=== PATIENT | female | born 1985 | race Caucasian/White ===

== ENCOUNTER 2021-07-03 09:13 | Observation (INO) | payer OTHER, SELFPAY ==
--- NOTE | ~2021-07-03 | US_ITS ---
EXAMINATION: US OB limited w BPP DATE: 07/03/2021 10:40 INDICATION: well-being. Third trimester. TECHNIQUE: Real-time pelvic ultrasound was performed. COMPARISON: None. FINDINGS: There is a single living fetus in vertex presentation. The placenta is anterior. heart rate is 142 beats per minute (bpm). The amniotic fluid index is 18.0 cm, which is normal. Biophysical profile performed by the technologist: breathing (30 sec sustained breathing in 30 minutes): 2 out of 2 movement (3 gross body movements in 30 minutes): 2 out of 2 tone (one episode of hpuywcj-nuqrcavvg-szgkzog limb movement): 2 out of 2 Amniotic fluid pocket (2 cm): 2 out of 2 Total score: 8 out of 8 IMPRESSION: 1. Single living fetus in vertex presentation. 2. Biophysical profile 8 out of 8. Reviewed, dictated and finalized at location A. MANAGER
[2021-07-03 09:30] VITALS: BMI 28.2
[2021-07-03 09:37] VITALS: BP 133/84; PULSE 84
[2021-07-03 10:44] LABS: Add Urine Microscopic? YES; Appearance Urine Cloudy (Clear); Bacteria Urine Trace /hpf; Bilirubin Urine Negative (Negative); Blood Urine 2+ (Negative); Color Urine Yellow (Yellow); Glucose Urine UA Negative (Negative); Ketones Urine Negative (Negative); Leukocyte Esterase Ur Trace LEU/UL (Negative); Nitrate Urine Negative (Negative); Protein Urine Negative (Negative); RBC Urine 0-2 /hpf (0-2); Specific Grav Ur 1.015 (1.001-1.035); Squamous Epithelial Cell Urine Few /hpf (Few); Urobilinogen Urine Negative mg/dL (<2.0)
--- NOTE | 2021-07-03 12:04 | OBADM ---
This patient, Virginia Tiwari, admitted to the OB room OB Post 117 for observation. Patient/family oriented to hospital policies and general routines including ID bracelet, bed and alarms, visiting hours, pain management, procedures, bathroom and other care routines, personal items, smoking policy, room service/diet, and visiting hours. Patient/Family are encouraged to report perceived risks to care and to ask questions if they do not understand what they are told or what they should do.
--- NOTE | 2021-07-31 08:36 | PM.OBTRLD ---
OB - Triage/Final Diagnosis Visit Information Comments/Additional reasons for admission: I have assessed the risk for this patient, [place] Tiwari, and determined that she would benefit from observation care. Evaluation Laboratory results: Laboratory Tests 07/03/21 07/03/21 07/03/21 10:22 11:55 11:58 Urine Color Yellow Urine Appearance Cloudy H Urine pH 7.0 Ur Specific [place] 1.015 Urine Protein Negative Urine Glucose (UA) Negative Urine Ketones Negative Ur Blood (Man) 2+ H Urine Nitrate Negative Urine Bilirubin Negative Urine Urobilinogen Negative Leukocyte Esterase Rfl Trace H Urine RBC 0-2 Urine WBC 7-9 H Ur Squamous Epith Cells Few Urine Bacteria Trace C.trachomatis RNA (TMA) Not detected N.gonorrhoeae RNA (TMA) Not detected Trichomonas Direct ID Negative Final Diagnosis (1) Vaginal bleeding during : Code(s): O46.90 - Antepartum hemorrhage, unspecified, unspecified trimester Status: Acute
== END 2021-07-03 12:05 | disposition home or self-care (01) ==
PROVIDERS: Advanced Practice Midwife; Admitting Provider Obstetrics & Gynecology; Visit Provider Obstetrics & Gynecology
DX: O46.93 Antepartum hemorrhage, unspecified, third trimester (principal); Z3A.33 33 weeks gestation of pregnancy
CPT/HCPCS: 76815; 76819; 81001; 87086; 87491; 87591; 87808; G0378; G0379

== ENCOUNTER 2021-07-10 11:19 | Outpatient (CLI) | payer OTHER, SELFPAY ==
[2021-07-10] VITALS (12 sets, daily range): BP systolic 122–142; BP diastolic 48–87; PULSE 71–89; BMI 27.8
[2021-07-10 12:03] LABS: Basophils Percent Auto 0.2 % (0.2-1.2); Eosinophils Percent Auto 0.3 % (0-4.4); Hematocrit 31.3 % (37.0-47.0); Hemoglobin 9.4 g/dL (12.0-15.0); Immature Granulocyte Absolute 0.12 K/mm3 (0.00-0.031); Lymphocytes Absolute Auto 1.54 K/mm3 (0.9-3.2); Lymphocytes Percent Auto 13.3 % (18.3-44.2); Mean Corpuscular Hemoglobin 24.7 pg (26-34); Mean Corpuscular Volume 82.2 fl (80-100); Mean Platelet Volume 11.7 fl (7.4-10.4); Monocytes Percent Auto 8.5 % (2.6-8.5); Neutrophils Absolute Auto 8.9 K/mm3 (1.3-6.7); Neutrophils Percent Auto 76.7 % (45.5-73.1); Platelet Count Result 208 k/mm3 (150-375); Red Blood Count 3.81 M/mm3 (4.2-5.4); White Blood Count 11.5 K/mm3 (4.5-10.0)
[2021-07-10 12:13] LABS: Alanine Aminotransferase 12 U/L (4-35); Albumin Level 3.6 g/dL (3.5-5.1); Alkaline Phosphatase 261 U/L (38-126); Anion Gap 4 mmol/L (8-16); Aspartate Amino Transferase 26 U/L (14-36); Bilirubin,Total < 0.1 mg/dL (0.2-1.3); Blood Urea Nitrogen 10 mg/dL (7-17); Calcium 8.4 mg/dL (8.4-10.2); Carbon Dioxide 27 mmol/L (22-30); Chloride 103 mmol/L (98-107); Estimated Glomerular Filt Rate > 60; Glucose 83 mg/dL (65-110); Potassium 3.8 mmol/L (3.4-5.0); Sodium 134 mmol/L (137-145); Uric Acid 6.2 mg/dL (2.5-7.5)
[2021-07-10 13:26] LABS: Creatinine Urine 105.4 mg/dL; Total Protein Urine Random 12 mg/dL; Ur Ttl Prot Creatinine Ratio 0.11 mg/mg (0-0.20)
[2021-07-10 13:43] LABS: Add Urine Microscopic? YES; Appearance Urine Clear (Clear); Bilirubin Urine Negative (Negative); Blood Urine Negative (Negative); Color Urine Yellow (Yellow); Glucose Urine UA Negative (Negative); Ketones Urine Negative (Negative); Leukocyte Esterase Ur Trace LEU/UL (Negative); Nitrate Urine Negative (Negative); Protein Urine Negative (Negative); RBC Urine 0-2 /hpf (0-2); Specific Grav Ur 1.013 (1.001-1.035); Squamous Epithelial Cell Urine Rare /hpf (Few); Urobilinogen Urine Negative mg/dL (<2.0)
--- NOTE | 2021-07-10 13:50 | PC.NURSE ---
4 contractions in the last hour. Pt still denies feeling them.
--- NOTE | 2021-07-10 14:08 | PC.NURSE ---
Koko Mars CNM returned call and informed of BP's, reactive NST, and lab results. Discussed contractions noted on NST which pt doesn't feel, PO hydration had decreased contractions to 4 in an hour, but just noted an increase in frequency again and when I asked the pt if she was feeling these contractions she stated no, but she did need to use the restroom. Pt c/o heartburn. OK to discharge to home.
--- NOTE | 2021-07-10 14:14 | PC.NURSE ---
2 contractions in the last 24 mins. Pt up to void.
== END 2021-07-10 14:16 | disposition home or self-care (01) ==
LOC: ANHOBOP 11:25 → ANHOBPP 11:28
PROVIDERS: Visit Provider Obstetrics & Gynecology
DX: O13.9 Gestational [pregnancy-induced] hypertension without significant proteinuria, unspecified trimester (principal); Z3A.00 Weeks of gestation of pregnancy not specified
CPT/HCPCS: 36415; 59025; 80053; 81001; 82570; 84156; 84550; 85025; 99199

== ENCOUNTER 2021-07-21 11:09 | Outpatient (CLI) | payer OTHER, SELFPAY ==
[2021-07-21 11:30] VITALS: BP 139/79; PULSE 75
[2021-07-21 11:35] VITALS: BP 139/84; PULSE 69
[2021-07-21 11:45] VITALS: BP 136/83; PULSE 74
[2021-07-21 11:54] LABS: Basophils Percent Auto 0.2 % (0.2-1.2); Eosinophils Percent Auto 0.4 % (0-4.4); Hematocrit 27.2 % (37.0-47.0); Hemoglobin 8.1 g/dL (12.0-15.0); Immature Granulocyte Absolute 0.08 K/mm3 (0.00-0.031); Immature Granulocyte Percent A 0.9 % (0-0.5); Lymphocytes Absolute Auto 1.54 K/mm3 (0.9-3.2); Lymphocytes Percent Auto 18.2 % (18.3-44.2); Mean Corpuscular HGB Conc 29.8 g/dl (32-36); Mean Corpuscular Hemoglobin 24.3 pg (26-34); Mean Corpuscular Volume 81.7 fl (80-100); Mean Platelet Volume 12.6 fl (7.4-10.4); Monocytes Absolute Auto 0.6 K/mm3 (0.1-0.6); Monocytes Percent Auto 7.6 % (2.6-8.5); Neutrophils Absolute Auto 6.2 K/mm3 (1.3-6.7); Neutrophils Percent Auto 72.7 % (45.5-73.1); Nucleated Red Blood Cells Perc 0.2 % (0.0-0.2); Platelet Count Result 142 k/mm3 (150-375); Red Blood Count 3.33 M/mm3 (4.2-5.4); Red Cell Distribution Width 16.3 % (11.5-14.5); White Blood Count 8.5 K/mm3 (4.5-10.0)
[2021-07-21 12:01] LABS: Appearance Urine Clear (Clear); Bilirubin Urine Negative (Negative); Blood Urine Negative (Negative); Color Urine Yellow (Yellow); Glucose Urine UA Negative (Negative); Ketones Urine Negative (Negative); Leukocyte Esterase Ur 2+ LEU/UL (NEGATIVE); Nitrate Urine Negative (Negative); Protein Urine Trace mg/dL (Negative); Specific Grav Ur 1.015 (1.001-1.035); Urobilinogen Urine 0.2 mg/dL (<2.0); pH Urine 7.5 (5.0-9.0)
[2021-07-21 12:07] LABS: RBC Urine 0-2 /hpf (0-2); Squamous Epithelial Cell Urine Few /hpf (Few)
[2021-07-21 12:10] LABS: Add Urine Microscopic? YES
[2021-07-21 12:15] VITALS: BP 137/76; PULSE 78
[2021-07-21 12:15] LABS: Alanine Aminotransferase 11 U/L (4-35); Albumin Level 2.8 g/dL (3.5-5.1); Alkaline Phosphatase 238 U/L (38-126); Anion Gap 5 mmol/L (8-16); Aspartate Amino Transferase 27 U/L (14-36); Bilirubin,Total 0.1 mg/dL (0.2-1.3); Blood Urea Nitrogen 10 mg/dL (7-17); Calcium 7.5 mg/dL (8.4-10.2); Carbon Dioxide 24 mmol/L (22-30); Chloride 105 mmol/L (98-107); Estimated Glomerular Filt Rate > 60; Glucose 91 mg/dL (65-110); Potassium 3.9 mmol/L (3.4-5.0); Sodium 134 mmol/L (137-145); Uric Acid 6.4 mg/dL (2.5-7.5)
[2021-07-21 12:18] LABS: Creatinine Urine 73.6 mg/dL; Total Protein Urine Random 23 mg/dL; Ur Ttl Prot Creatinine Ratio 0.31 mg/mg (0-0.20)
[2021-07-21 12:25] VITALS: BP 136/83; PULSE 69
== END 2021-07-21 12:30 | disposition home or self-care (01) ==
LOC: ANHOBOP 11:13 → ANHOBPP 11:13
PROVIDERS: Visit Provider Obstetrics & Gynecology
DX: O13.3 Gestational [pregnancy-induced] hypertension without significant proteinuria, third trimester (principal); Z3A.36 36 weeks gestation of pregnancy
CPT/HCPCS: 36415; 59025; 80053; 81001; 82570; 84156; 84550; 85025; 87086; 99199

== ENCOUNTER 2021-07-24 14:32 | Outpatient (RCR) | payer OTHER, SELFPAY ==
--- NOTE | ~2021-07-24 | US_ITS ---
EXAMINATION: US OB BPP wo non-stress DATE: 07/24/2021 17:09 INDICATION: Variable decelerations. Third trimester. TECHNIQUE: Real-time pelvic ultrasound was performed. COMPARISON: Ultrasound 07/03/2021 FINDINGS: There is a single living fetus in vertex presentation. There is mild left pelviectasis measuring 9 mm . The bladder is subjectively distended. The placenta is anterior. heart rate is 142 beats per minute (bpm). The amniotic fluid index is 22.3 cm, which is normal. Biophysical profile performed by the technologist: breathing (30 sec sustained breathing in 30 minutes): 2 out of 2 movement (3 gross body movements in 30 minutes): 2 out of 2 tone (one episode of zayovmi-kbtfwtqca-xiqxwch limb movement): 2 out of 2 Amniotic fluid pocket (2 cm): 2 out of 2 Total score: 8 out of 8 IMPRESSION: 1. Single living fetus in vertex presentation. 2. Biophysical profile 8 out of 8. 3. Mild pelviectasis of left kidney. Reviewed, dictated and finalized at location A.
[2021-07-24 17:20] VITALS: BP 153/91; PULSE 67
== END 2021-07-24 15:00 | disposition home or self-care (01) ==
LOC: ANHOBOP 14:32
PROVIDERS: PCP Emergency Medicine; Visit Provider Advanced Practice Midwife
DX: O36.8330 Maternal care for abnormalities of the fetal heart rate or rhythm, third trimester, not applicable or unspecified (principal); O16.3 Unspecified maternal hypertension, third trimester; Z3A.36 36 weeks gestation of pregnancy
CPT/HCPCS: 59025; 76819

== ENCOUNTER 2021-07-25 06:15 | Inpatient (IN) | payer OTHER, SELFPAY ==
--- NOTE | 2021-07-24 12:29 | PC.NURSE ---
Received call from Areli Shaffer from [facility]. They are aware that pt is scheduled for IOL tomorrow AM. Care Coordination should be notified when pt delivers and they will notify [facility] hotline after delivery.willian Shaffer states she has notified the contractor general engineering staff and her supervisor tumbling and rolling. Spoke with Cary Gates and they are aware pt is delivering on weekend and weekend contractor general engineering staff is also aware.
[2021-07-25] VITALS (71 sets, daily range): BP systolic 103–166; BP diastolic 49–96; PULSE 31–122; RESP 16–18; TEMP 36.3–37.4; O2SAT 84–100; BMI 29.8
--- OUTSIDE RECORDS SUMMARY | 2021-07-25 06:06 | XMS_ITS ---
:1985 Author Care Team Providers Name Role Phone DAMARIS FERNANDEZ Primary Care Provider [phone] Allergies Code Code System Name Reaction Severity Status Onset NKDA ? Medications Name Status Start Date Stop Date ? ? Addyi 100 mg tablet Completed ? 06/28/2020 azithromycin 500 mg tablet Completed ? 02/02 TAKE 2 TABLETS BY MOUTH 1 TIME buspirone 10 mg tablet Active ? Not avail able TAKE 1 TABLET BY MOUTH TWICE DAILY. AVOID DRIVING OR OPERATE [employer] buspirone 15 mg tablet Completed ? TAKE 1 TABLET BY MOUTH TWICE DAILY duloxetine 30 mg capsule,delayed release Completed ? 06/28/2020 TK 1 C PO QD duloxetine 60 mg capsule,delayed release Active ? Not available TAKE 1 CAPSULE BY MOUTH TWICE DAILY esomeprazole magnesium 20 mg capsule,delayed release Active ? Not available TAKE 1 CAPSULE BY MOUTH ONCE DAILY fluconazole 200 mg tablet Completed ? 2020 TAKE 1 TABLET BY MOUTH EVERY OTHER DAY FOR 3 DOSES ID NOW COVID-19 Test Kit Completed ? 021 TEST DIRECTED meloxicam 15 mg tablet Completed ? TK 1 T PO QD PRN methylphenidate 10 mg tablet Completed ? 02/2021 TAKE 1 AND 1/2 TABLETS BY MOUTH TWICE DAILY metronidazole 0.75 % vaginal gel Completed ? 08/09/2020 INSERT ONE APPLICATORFUL VAGINALLY AT BEDTIME FOR 5 DAYS metronidazole 500 mg tablet Completed ? 09/2020 TK 1 T PO BID FOR 7 DAYS. DO NOT DRK ALCOHOL
--- OUTSIDE RECORDS SUMMARY | 2021-07-25 06:06 | XMS_ITS | Encounter Summary ---
:1985 Author Care Team Providers Name Role Phone Pérez Conley Primary Care Provider [phone] Reason for Visit None recorded. Assessment and Plan 1. Spotting per vagina in pregna ncy ? non-stress test Discussion Note: None recorded.Patient educational handouts: No information available. Plan of Care Reminders Provider Appointments Ob Routine 07/31/2021 Kusum Mars, 3:00PM CNM ? Ob Routine 08/06/2021 Biju Liu 11:00AM MD Marcelo ? Ob Routine 08/14/2021 Cristiana Mars, 10:00AM CNM ? Ob Routine 08/21/2021 Cristiana Mars, 10:45AM CNM ? Return to on or around [facility] 09/03/2021 TIAGO Michel [facility] Lab None ? ? recorded. Referral None ? ? recorded. Procedures None ? ? recorded. Surgeries None ? ? recorded. Imaging Non-stress 07/07/2021 Tam day Test Medications Name Start Date ? ? buspirone 10 mg tablet ? TAKE 1 TABLET BY MOUTH TWICE DAILY. AVOID DRIVING OR OPERATE MACHINES duloxetine 60 mg capsule,delayed release ? TAKE 1 CAPSULE BY MOUTH TWICE DAILY esomeprazole magnesium 20 mg capsule,mary
--- OUTSIDE RECORDS SUMMARY | 2021-07-25 06:06 | XMS_ITS | Encounter Summary ---
:1985 Author Care Team Providers Name Role Phone Pérez Conley Primary Care Provider [phone] Reason for Visit OB visit OB [id number] EDC 08/15/2021 Assessment and Plan Assessment Note Patient is _33__weeks . Dis cussed plan. 1. Routine care Discussion Note: None recorded.Patient educational handouts: No information available. Plan of Care Reminders Provider Appointments Ob Routine 07/31/2021 Kusum Mars, 3:00PM CNM ? Ob Routine 08/06/2021 Biju Liu 11:00AM MD Marcelo ? Ob Routine 08/14/2021 Cristiana Mars, 10:00AM CNM ? Ob Routine 08/21/2021 Cristiana Mars, 10:45AM CNM ? Return to on or around [facility] Office 09/03/2021 TIAGO Michel - Lab None ? ? recorded. Referral None ? ? recorded. Procedures None ? ? recorded. Surgeries None ? ? recorded. Imaging None ? ? recorded. Medications Name Start Date ? ? buspirone 10 mg tablet ? TAKE 1 TABLET BY MOUTH TWICE DAILY. AVOID DRIVING OR OPERATE MACHINES duloxetine 60 mg capsule,delayed release ?
--- OUTSIDE RECORDS SUMMARY | 2021-07-25 06:06 | XMS_ITS | Encounter Summary ---
:1985 Author Care Team Providers Name Role Phone Pérez Conley Primary Care Provider [phone] Reason for Visit None recorded. Assessment and Plan None recorded.Discussion Note: None recorded.Patient educational handouts: No information available. Plan of Care Reminders Provider Appointments Ob Routine 07/31/2021 Kusum Mars, 3:00PM CNM ? Ob Routine 08/06/2021 Biju Liu 11:00AM MD Marcelo ? Ob Routine 08/14/2021 Cristiana Mars, 10:00AM CNM ? Ob Routine 08/21/2021 Cristiana Mars, 10:45AM CNM ? Return to on or around [facility] Office 09/03/2021 TIAGO Michel [facility] Lab None ? ? recorded. Referral [...] DAILY esomeprazole magnesium 20 mg capsule,delayed release ? TAKE 1 CAPSULE BY MOUTH ONCE DAILY ? Medications Administered
--- OUTSIDE RECORDS SUMMARY | 2021-07-25 06:06 | XMS_ITS | Encounter Summary ---
:1985 Author Care Team Providers Name Role Phone Pérez Conley Primary Care Provider [phone] Reason for Visit OB visit Assessment and Plan Assessment Note Patient is _25__weeks . Dis cussed plan. 1. Routine care ? drug screen, urine Discussion Note: None recorded.Patient educational handouts: No information available. Plan of Care Reminders Provider Appointments Ob Routine 07/31/2021 Kusum Mars, 3:00PM CNM ? Ob Routine 08/06/2021 Biju Liu 11:00AM MD Marcelo ? Ob Routine 08/14/2021 Cristiana Mars, 10:00AM CNM ? Ob Routine 08/21/2021 Cristiana Mars, 10:45AM CNM ? Return to on or around [facility] Office 09/03/2021 TIAGO Michel [facility] Lab Drug 05/08/2021 [place] Screen, Urine Referral None ? ? recorded. Procedures None ? ? recorded. Surgeries None ? ? recorded. Imaging None ? ? recorded. Medications Name Start Date ? ? buspirone 10 mg tablet ? TAKE 1 TABLET BY MOUTH TWICE DAILY. AVOID DRIVING OR OPERATE MACHINES duloxetine 60 mg capsule,d
--- OUTSIDE RECORDS SUMMARY | 2021-07-25 06:06 | XMS_ITS | Encounter Summary ---
:1985 Author Care Team Providers Name Role Phone Pérez Conley Primary Care Provider [phone] Reason for Visit None recorded. Assessment and [...] around [facility] 09/03/2021 TIAGO Michel [facility] Lab None ? ? recorded. Referral None ? ? recorded. Procedures None ? ? recorded. Surgeries None ? ? recorded. Imaging Non-stress 07/17/2021 Tam day Test Medications Name Start Date ? ? buspirone 10 mg tablet ? TAKE 1 TABLET BY MOUTH TWICE DAILY. AVOID DRIVING OR OPERATE MACHINES duloxetine 60 mg capsule,delayed release ? TAKE 1 CAPSULE BY MOUTH TWICE DAILY esomeprazole magnesium 20 mg capsule,mary
--- OUTSIDE RECORDS SUMMARY | 2021-07-25 06:06 | XMS_ITS | Encounter Summary ---
:1985 Author Care Team Providers Name Role Phone Pérez oCnley Primary Care Provider [phone] Reason for Visit None recorded. Assessment and [...] around [facility] 09/03/2021 TIAGO Michel - Lab None ? ? recorded. Referral None ? ? recorded. Procedures None ? ? recorded. Surgeries None ? ? recorded. Imaging Non-stress 07/24/2021 Tam day Test Medications Name Start Date ? ? buspirone 10 mg tablet ? TAKE 1 TABLET BY MOUTH TWICE DAILY. AVOID DRIVING OR OPERATE MACHINES duloxetine 60 mg capsule,delayed release ? TAKE 1 CAPSULE BY MOUTH TWICE DAILY esomeprazole magnesium 20 mg capsule,del
--- OUTSIDE RECORDS SUMMARY | 2021-07-25 06:06 | XMS_ITS | Encounter Summary ---
:1985 Author Care Team Providers Name Role Phone Pérez Conley Primary Care Provider [phone] Reason for Visit None recorded. Assessment and Plan 1. Medical examination for suspe cted condition ? US, obstetric, follow-up Discussion Note: None recorded.Patient educational handouts: No information available. Plan of Care Reminders Provider Appointments Ob Routine 07/31/2021 Kusum Mars, 3:00PM CNM ? Ob Routine 08/06/2021 Biju Liu 11:00AM MD Marcelo ? Ob Routine 08/14/2021 Cristiana Mars, 10:00AM CNM ? Ob Routine 08/21/2021 Cristiana Mars, 10:45AM CNM ? Return to on or around [facility] Office 09/03/2021 TIAGO Michel - Lab None ? ? recorded. Referral None ? ? recorded. Procedures None ? ? recorded. Surgeries None ? ? recorded. Imaging US, 07/06/2021 [place] Obstetric, Follow-up Medications Name Start Date ? ? buspirone 10 mg tablet ? TAKE 1 TABLET BY MOUTH TWICE DAILY. AVOID DRIVING OR OPERATE MACHINES duloxetine 60 mg capsule,delayed release ? TAKE 1 CAPSULE BY MOUT
--- OUTSIDE RECORDS SUMMARY | 2021-07-25 06:06 | XMS_ITS | Encounter Summary ---
:1985 Author Care Team Providers Name Role Phone Pérez Conley Primary Care Provider [phone] Reason for Visit OB visit [id number] Assessment and Plan 1. Routine care 2. -induced hypertensio n ? CBC w/ auto diff ? CMP, serum or plasma ? uric acid, serum or plasma Discussion Note: None recorded.Patient educational handouts: No information available. Plan of Care Reminders Provider Appointments Ob Routine 07/31/2021 Kusum Mars, 3:00PM CNM ? Ob Routine 08/06/2021 Biju Liu 11:00AM MD Marcelo ? Ob Routine 08/14/2021 Cristiana Mars, 10:00AM CNM ? Ob Routine 08/21/2021 Cristiana Mars, 10:45AM CNM ? Return to on or around [facility] Office 09/03/2021 TIAGO Michel [facility] Lab CBC W/ 06/18/2021 [place] [facility] (Lab) ? CMP, Serum 06/18/2021 [facility] or Plasma [facility] (Lab) ? Uric Acid, 06/18/2021 [facility] Serum or [facility] (Lab) Referral None ? ? recorded. Procedures None ? ? recorded.
--- OUTSIDE RECORDS SUMMARY | 2021-07-25 06:06 | XMS_ITS | Encounter Summary ---
:1985 Author Care Team Providers Name Role Phone Pérez Conley Primary Care Provider [phone] Reason for Visit OB visit OB [id number] EDC 08/15/2021 LMP UNSURE Assessment and Plan Assessment Note Patient is ___weeks . Discu ssed plan. Discussion Note: None recorded.Patient educational handouts: No information available. Plan of Care Reminders Provider Appointments Ob Routine 07/31/2021 Kusum Mars, 3:00PM CNM ? Ob Routine 08/06/2021 Biju Liu 11:00AM MD Marcelo ? Ob Routine 08/14/2021 Cristiana Mars, 10:00AM CNM ? Ob Routine 08/21/2021 Cristiana Mars, 10:45AM CNM ? Return to on or around [facility] Office 09/03/2021 TIAGO Michel - Lab None [...]
--- OUTSIDE RECORDS SUMMARY | 2021-07-25 06:06 | XMS_ITS | Encounter Summary ---
:1985 Author Care Team Providers Name Role Phone Pérez Conley Primary Care Provider [phone] Reason for Visit None recorded. Assessment and Plan 1. condition affecting obs tetrical care of mother ? US, obstetric, biophysical profile Discussion Note: None recorded.Patient educational handouts: No information available. Plan of Care Reminders Provider Appointments Ob Routine 07/31/2021 Kusum Hazel 3:00PM MARITZA Mars ? Ob Routine 08/06/2021 Biju Liu 11:00AM MD Marcelo ? Ob Routine 08/14/2021 Cristiana Hazel 10:00AM MARITZA Mars ? Ob Routine 08/21/2021 Cristiana Hazel 10:45AM MARITZA Mars ? Return to on or around [facility] 09/03/2021 TIAGO Michel - Lab None ? ? recorded. Referral None ? ? recorded. Procedures None ? ? recorded. Surgeries None ? ? recorded. Imaging US, 07/17/2021 [place] Obstetric, Biophysical Profile Medications Name Start Date ? ? buspirone 10 mg tablet ?
--- OUTSIDE RECORDS SUMMARY | 2021-07-25 06:06 | XMS_ITS | Encounter Summary ---
:1985 Author Care Team Providers Name Role Phone Pérez Conley Primary Care Provider [phone] Reason for Visit OB visit ob [id number] edc 08/15/2021 lmp unsure Assessment and Plan Assessment Note Patient is _35__weeks . Dis cussed plan. 1. Routine care Discussion Note: None recorded.Patient educational handouts: No information available. Plan of Care Reminders Provider Appointments Ob Routine 07/31/2021 Kusum Mars, 3:00PM CNM ? Ob Routine 08/06/2021 Biju Liu 11:00AM MD Marcelo ? Ob Routine 08/14/2021 Cristiana Mars, 10:00AM CNM ? Ob Routine 08/21/2021 Cristiana Mars, 10:45AM CNM ? Return to on or around [facility] Office 09/03/2021 TIAGO Michel - Lab None [...]
--- OUTSIDE RECORDS SUMMARY | 2021-07-25 06:06 | XMS_ITS | Encounter Summary ---
:1985 Author Care Team Providers Name Role Phone Pérez Conley Primary Care Provider [phone] Reason for Visit OB visit Glucose/ OB [id number] EDC 08/15/2021 LMP u nsure Assessment and Plan Assessment Note Patient is __29_weeks . Dis cussed plan. 1. Routine care Discussion Note: None recorded.Patient educational handouts: No information available. Plan of Care Reminders Provider Appointments Ob Routine 07/31/2021 Kusum Mars, 3:00PM CNM ? Ob Routine 08/06/2021 Biju Liu 11:00AM MD Marcelo ? Ob Routine 08/14/2021 Cristiana Mars, 10:00AM CNM ? Ob Routine 08/21/2021 Cristiana Mars, 10:45AM CNM ? Return to on or around [facility] Office 09/03/2021 TIAGO Michel - Lab None ? ? recorded. Referral None ? ? recorded. Procedures None ? ? recorded. Surgeries None ? ? recorded. Imaging None ? ? recorded. Medications Name Start Date ? ? buspirone 10 mg tablet ? TAKE 1 TABLET BY MOUTH TWICE DAILY. AVOID DRIVING OR OPERATE MACHINES duloxetine 60 mg c
--- OUTSIDE RECORDS SUMMARY | 2021-07-25 06:06 | XMS_ITS | Encounter Summary ---
:1985 Author Care Team Providers Name Role Phone Pérez Conley Primary Care Provider [phone] Reason for Visit None recorded. Assessment and [...] around [facility] 09/03/2021 TIAGO Michel [facility] Lab None ? ? recorded. Referral None ? ? recorded. Procedures None ? ? recorded. Surgeries None ? ? recorded. Imaging Non-stress 07/10/2021 Tam day Test Medications Name Start Date ? ? buspirone 10 mg tablet ? TAKE 1 TABLET BY MOUTH TWICE DAILY. AVOID DRIVING OR OPERATE MACHINES duloxetine 60 mg capsule,delayed release ? TAKE 1 CAPSULE BY MOUTH TWICE DAILY esomeprazole magnesium 20 mg capsule,mary
[2021-07-25 06:50] LABS: Basophils Percent Auto 0.1 % (0.2-1.2); Eosinophils Percent Auto 0.1 % (0-4.4); Hematocrit 27.9 % (37.0-47.0); Hemoglobin 8.7 g/dL (12.0-15.0); Immature Granulocyte Absolute 0.06 K/mm3 (0.00-0.031); Immature Granulocyte Percent A 0.7 % (0-0.5); Lymphocytes Percent Auto 18.9 % (18.3-44.2); Mean Corpuscular HGB Conc 31.2 g/dl (32-36); Mean Corpuscular Hemoglobin 24.6 pg (26-34); Mean Corpuscular Volume 78.8 fl (80-100); Mean Platelet Volume 12.7 fl (7.4-10.4); Monocytes Absolute Auto 0.7 K/mm3 (0.1-0.6); Monocytes Percent Auto 8.5 % (2.6-8.5); Neutrophils Absolute Auto 6.1 K/mm3 (1.3-6.7); Neutrophils Percent Auto 71.7 % (45.5-73.1); Platelet Count Result 207 k/mm3 (150-375); Red Blood Count 3.54 M/mm3 (4.2-5.4); Red Cell Distribution Width 16.7 % (11.5-14.5); White Blood Count 8.5 K/mm3 (4.5-10.0)
--- NOTE | 2021-07-25 06:50 | LDADM ---
This patient, Virginia Tiwari, was admitted to Labor/Delivery/Recovery 104 on 07/25/21 at 05:58. Plans for labor, pain management and were discussed with patient. Patient/family oriented to hospital policies and general routines including ID bracelet, bed and alarms, visiting hours, pain management, procedures, bathroom and other care routines, personal items, smoking policy, room service/diet and guest tray routines, infant security routines, and visiting hours. Patient/Family are encouraged to report perceived risks to care and to ask questions if they do not understand what they are told or what they should do. See OBIX for further documentation.
--- NOTE | 2021-07-25 06:58 | WPDOBADMIT ---
Obstetrics - Admit Note Admission Note: record reviewed. No pertinent additions to the history and/or any subsequent changes in the physical findings that are not consistent with the expected course of the were found. MIL GHTN, hx +UDS for methamphetamine in , SVE /-2, AROM moderate amount of clear odorless fluid Additions to the history and/or subsequent changes in the physical findings follow. None.
[2021-07-25 07:04] LABS: Alanine Aminotransferase 13 U/L (4-35); Albumin Level 3.3 g/dL (3.5-5.1); Alkaline Phosphatase 267 U/L (38-126); Anion Gap 4 mmol/L (8-16); Aspartate Amino Transferase 36 U/L (14-36); Bilirubin,Total 0.2 mg/dL (0.2-1.3); Blood Urea Nitrogen 11 mg/dL (7-17); Calcium 8.2 mg/dL (8.4-10.2); Carbon Dioxide 24 mmol/L (22-30); Chloride 107 mmol/L (98-107); Estimated CRCL calculation 92 ml/min; Estimated Glomerular Filt Rate > 60; Glucose 83 mg/dL (65-110); Sodium 135 mmol/L (137-145)
[2021-07-25 07:10] LABS: Amphetamine Screen Urine Negative (Negative); Barbiturate Screen Urine Negative (Negative); Benzodiazepines Screen Urine Negative (Negative); Cannabinoid Screen Urine Negative (Negative); Cocaine Screen Urine Negative (Negative); Methadone Screen Urine Negative (Negative); Opiate Screen Urine Negative (Negative); Phencyclidine Screen Urine Negative (Negative)
[2021-07-25] MEDS: CALCIUM CARBONATE (TUMS) 500 MG (200 MG ELEMENTAL) PO (07:20)
[2021-07-25] MEDS: OXYTOCIN 30 UNITS/NS 500 ML 30 UNITS/500 ML BAG IV CONT (07:20)
[2021-07-25 07:21] LABS: Uric Acid 6.5 mg/dL (2.5-7.5)
[2021-07-25] MEDS: LACTATED RINGERS 1,000 ML 125 ML IV CONT ×2 (07:21→08:57)
--- NOTE | 2021-07-25 12:30 | P.PCNOB_ITS ---
OB - Delivery Note Procedure Delivery date: 07/25/21 Procedure: vaginal delivery Events: Gestational Hypertension and Other (+UDS) Intrapartal Events: Decelerations Induction method: AROM and Per Pitocin Protocol Delivery monitor: External FHT and External Uterine Route of delivery: Laceration Description: None Specimen: Yes Quantitative Blood Loss (ml): 60 Anesthesia type: Epidural Disposition: Floor [place] Baby Date of : 07/25/21 Time of : 12:18 Weeks of gestation at delivery: 37 Infant gender: Male Weight (pounds): 6 Weight (ounces): 3 presentation: compound (posterior hand ) position: Left Occiput Anterior Placenta delivery description: Spontaneous Cord Vessel Description: 3 Vessels and Clamped/Cut score one minute: 8 score five minutes: 9 Narrative: mother and baby in stable condition
[2021-07-25] MEDS: OXYTOCIN 30 UNITS/NS 500 ML 30 UNITS/500 ML BAG 125 UNITS IV CONT (12:53)
[2021-07-25] MEDS: BENZOCAINE 20% AER SPR (*SP) 56 GM CAN 1 SPRAY TOPICAL (14:40)
[2021-07-25] MEDS: IBUPROFEN 600 MG TABLET PO ×2 (14:40→22:19)
[2021-07-25] MEDS: WITCH HAZEL 40 PADS 1 PAD TOPICAL (14:40)
--- NOTE | 2021-07-25 15:16 | OBPPTRN ---
Patient transferred to post room #286 via wheelchair. Support person present. Oriented to unit, room, information board, rooming in, admission packet and security measures. Patient verbalizes understanding. with patient.
--- NOTE | 2021-07-25 17:05 | WPDANESEPP ---
Anes - Eval Pre Procedure Date/Time: 07/25/21 17:05 Pre Op Diagnosis: Induction of Labor Patient Data Age: 35 Gender: F Height: 1.57 m Weight: 74 kg Last Vital Signs Temp 36.3 C L 07/25/21 15:16 Pulse 81 07/25/21 15:16 Resp 16 07/25/21 15:16 BP 144/86 H 07/25/21 15:16 Pulse Ox 99 07/25/21 15:16 Allergies Allergy/AdvReac Type Severity Reaction Status Date / Time No Known Allergies Allergy Unknown Verified 07/10/21 14:39 Home Medications Medication Instructions Recorded Confirmed Type PNV cmb#95-ferrous fumarate-FA 1 tablet PO DAILY 07/10/21 07/25/21 History [] buspirone 15 mg PO DAILY 07/10/21 07/25/21 History cholecalciferol (vitamin D3) 125 mcg PO DAILY 07/10/21 07/25/21 History [Vitamin D3] duloxetine [Cymbalta] 30 mg PO DAILY 07/10/21 07/25/21 History esomeprazole magnesium 20 mg PO DAILY 07/10/21 07/25/21 History ferrous sulfate [Slow Release Iron] 140 mg PO DAILY 07/23/21 07/25/21 History omeprazole 20 mg PO DAILY 07/25/21 07/25/21 History Laboratory Tests 07/25/21 07/25/21 07/25/21 06:38 06:38 06:38 WBC 8.5 K/mm3 K/mm3 (4.5-10.0) RBC 3.54 M/mm3 L M/mm3 (4.2-5.4) Hgb 8.7 g/dL L g/dL (12.0-15.0) Hct 27.9 % L % (37.0-47.0) MCV 78.8 fl L fl (80-100) MCH 24.6 pg L pg (26-34) MCHC 31.2 g/dl L g/dl (32-36) RDW 16.7 % H % (11.5-14.5) Plt Count 207 k/mm3 k/mm3 (150-375) MPV 12.7 fl H fl (7.4-10.4) Immature Gran % (Auto) 0.7 % H % (0-0.5) Neut % (Auto) 71.7 % % (45.5-73.1) Lymph % (Auto) 18.9 % % (18.3-44.2) Edmunds % (Auto) 8.5 % % (2.6-8.5) Eos % (Auto) 0.1 % % (0-4.4) Baso % (Auto) 0.1 % L % (0.2-1.2) Lymph # (Auto) 1.60 K/mm3 K/mm3 (0.9-3.2) Edmunds # (Auto) 0.7 K/mm3 H K/mm3 (0.1-0.6) Eos # (Auto) 0.0 K/mm3 K/mm3 (0-0.3) Baso # (Auto) 0.0 K/mm3 K/mm3 (0.0-0.1) Abs Immat Gran (auto) 0.06 K/mm3 H K/mm3 (0.00-0.031) Absolute Neuts (auto) 6.1 K/mm3 K/mm3 (1.3-6.7) Absolute Nucleated RBC 0.0 K/mm3 K/mm3 (0.0-0.012) Nucleated RBC % 0.0 % % (0.0-0.2) Sodium Potassium Chloride Carbon Dioxide Anion Gap BUN Creatinine Estim Creat Clear Calc Estimated GFR Glucose Uric Acid 6.5 mg/dL mg/dL (2.5-7.5) Calcium Total Bilirubin AST ALT Alkaline Phosphatase Total Protein Albumin Urine Opiates Screen Urine Methadone Screen Ur Barbiturates Screen Ur Phencyclidine Scrn Ur Amphetamine Screen U Benzodiazepines Scrn Urine Cocaine Screen U Cannabinoids Screen RPR Pending Blood Type Antibody Screen 07/25/21 07/25/21 07/25/21 06:38 06:38 06:38 WBC RBC Hgb Hct MCV MCH MCHC RDW Plt Count MPV Immature Gran % (Auto) Neut % (Auto) Lymph % (Auto) Edmunds % (Auto) Eos % (Auto) Baso % (Auto) Lymph # (Auto) Edmunds # (Auto) Eos # (Auto) Baso # (Auto) Abs Immat Gran (auto) Absolute Neuts (auto) Absolute Nucleated RBC Nucleated RBC % Sodium 135 mmol/L L mmol/L (137-145) Potassium 4.0 mmol/L mmol/L (3.4-5.0) Chloride 107 mmol/L mmol/L (98-107) Carbon Dioxide 24 mmol/L mmol/L (22-30) Anion Gap 4 mmol/L L mmol/L (8-16) BUN 11 m
[2021-07-25] MEDS: POLYSACCHARIDE IRON COMPLEX 150 MG CAPSULE PO (17:45)
[2021-07-26] VITALS (12 sets, daily range): BP systolic 144–161; BP diastolic 72–97; PULSE 69–89; RESP 16–82; TEMP 36.1–36.9; O2SAT 97–100
[2021-07-26] MEDS: IBUPROFEN 600 MG TABLET PO ×3 (04:12→20:42)
[2021-07-26 04:55] LABS: Hematocrit 24.9 % (37.0-47.0); Hemoglobin 7.6 g/dL (12.0-15.0)
--- NOTE | 2021-07-26 07:40 | PM.OBPNVD ---
OB - PN: Subj Subjective Date/time seen: 07/26/21 07:40 Patient comments: no complaints baby status: doing well OB - PN: Obj Data Labs CBC & Chem 7: 07/26/21 04:00 07/25/21 06:38 Labs: Laboratory Results - last 24 hr 07/25/21 07/26/21 06:38 04:00 Hgb 7.6 L Hct 24.9 L Antibody Screen Negative OB - PN A/P Plan day: 1 Plan: routine care Comments: hx anemia, plan infusion Time Spent With Patient Time: Total time spent is greater than 50% in coordination of care (as documented) at patient's floor/unit and/or counseling patient: Review of Systems Review of Systems: All systems reviewed & are unremarkable except as noted in HPI and below Exam Const: General: cooperative and no acute distress
[2021-07-26] MEDS: DOCUSATE SODIUM 100 MG CAPSULE PO ×2 (10:31→16:08)
[2021-07-26] MEDS: POLYSACCHARIDE IRON COMPLEX 150 MG CAPSULE PO ×2 (10:31→16:08)
[2021-07-26] MEDS: MULTIVIT/MIN/PREN/FOL AC/IRON TABLET 1 TAB PO (10:31)
[2021-07-26] MEDS: DULoxetine HCL 30 MG CAPSULE.DR PO (10:32)
[2021-07-26] MEDS: busPIRone HCL 5 MG TABLET 15 MG PO (10:32)
[2021-07-26] MEDS: SODIUM CHLORIDE 0.9% IV 250 ML 30 ML IV CONT (11:13)
--- NOTE | 2021-07-26 11:40 | PC.NURSE ---
DCF[employer] disability case manager here to see patient and discuss plan of care. Becca in care coordination notified
[2021-07-26 13:03] LABS: Rapid Plasma Reagin Non-Reactive (NonReactive)
--- NOTE | 2021-07-26 14:50 | PCCCNOTE ---
Addendum entered by SKY Forte 07/27/21 12:50: Received call from [facility] equipment operator warehouse Kimberly ([phone]) who reports DCFS will take Protective Custody of Baby Jeff Tiwari and her [facility] case coordinator Areli is working on placement. RN notified. [place] has been notified by DCFS worker and Areli regarding plan. Original Note: Care Coordination Consult: Met with pt. today who reports this is her third child. Her other two children are currently in the care of her Mother in Law. Pt. reports she is currently in services with [facility] and reports her case coordinator Areligus Shaffer ([phone]) is through [facility] [employer]. 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 Pt. aware she and baby were tested with negative urinalysis results. Umbilical testing is pending at this time. Pt. lives at home with her /FOB Ulises. She has already been informed by Areli that DCFS would come meet with her after her baby's . She reports she has everything she needs at home for the baby except she is waiting for a [employer] to come in the mail. Contacted [facility] hotline Report #[id number] and a report will be taken. A DCFS worker will come today to speak to the patient at the hospital. Received call from RN that DCFS equipment operator warehouseKimberly is here and speaking with mother. Per Kimberly she will discuss case with Areli and contact CC tomorrow regarding outcome of their investigation. Discharge dispo is pending [facility]. RN aware.
[2021-07-26] MEDS: LABETALOL HCL 100 MG TABLET 200 MG PO (16:08)
[2021-07-26] MEDS: ACETAMINOPHEN 325 MG TABLET 650 MG PO (17:16)
[2021-07-26 19:41] LABS: Basophils Percent Auto 0.2 % (0.2-1.2); Eosinophils Percent Auto 0.4 % (0-4.4); Hematocrit 31.6 % (37.0-47.0); Hemoglobin 9.9 g/dL (12.0-15.0); Immature Granulocyte Absolute 0.12 K/mm3 (0.00-0.031); Immature Granulocyte Percent A 1.2 % (0-0.5); Lymphocytes Absolute Auto 1.85 K/mm3 (0.9-3.2); Lymphocytes Percent Auto 18.8 % (18.3-44.2); Mean Corpuscular HGB Conc 31.3 g/dl (32-36); Mean Corpuscular Hemoglobin 26.1 pg (26-34); Mean Corpuscular Volume 83.4 fl (80-100); Mean Platelet Volume 12.1 fl (7.4-10.4); Monocytes Absolute Auto 0.9 K/mm3 (0.1-0.6); Monocytes Percent Auto 9.3 % (2.6-8.5); Neutrophils Absolute Auto 6.9 K/mm3 (1.3-6.7); Neutrophils Percent Auto 70.1 % (45.5-73.1); Nucleated Red Blood Cells Perc 0.2 % (0.0-0.2); Platelet Count Result 191 k/mm3 (150-375); Red Blood Count 3.79 M/mm3 (4.2-5.4); Red Cell Distribution Width 16.8 % (11.5-14.5); White Blood Count 9.9 K/mm3 (4.5-10.0)
[2021-07-26 19:53] LABS: Alanine Aminotransferase 16 U/L (4-35); Albumin Level 2.6 g/dL (3.5-5.1); Alkaline Phosphatase 190 U/L (38-126); Anion Gap 4 mmol/L (8-16); Aspartate Amino Transferase 36 U/L (14-36); Bilirubin,Total 0.2 mg/dL (0.2-1.3); Blood Urea Nitrogen 9 mg/dL (7-17); Calcium 8.2 mg/dL (8.4-10.2); Carbon Dioxide 22 mmol/L (22-30); Chloride 108 mmol/L (98-107); Estimated CRCL calculation 106 ml/min; Estimated Glomerular Filt Rate > 60; Glucose 116 mg/dL (65-110); Potassium 3.7 mmol/L (3.4-5.0); Sodium 134 mmol/L (137-145); Uric Acid 6.1 mg/dL (2.5-7.5)
[2021-07-26] MEDS: TETANUS,DIPHTHERIA,AC PERTUSSIS ADULT (0.5 ML) BOOSTRIX IM (20:44)
[2021-07-27] VITALS (8 sets, daily range): BP systolic 138–158; BP diastolic 73–98; PULSE 68–87; RESP 16–18; TEMP 36.1–37; O2SAT 99–100
[2021-07-27] MEDS: IBUPROFEN 600 MG TABLET PO ×3 (02:23→16:59)
[2021-07-27] MEDS: LABETALOL HCL 100 MG TABLET 200 MG PO ×2 (05:56→18:01)
--- NOTE | 2021-07-27 07:40 | PM.OBPNVD ---
OB - PN: Subj Subjective Date/time seen: 07/27/21 07:40 Patient comments: no complaints, pain well controlled and tolerating diet OB - PN: Obj Data Labs CBC & Chem 7: 07/26/21 19:30 07/26/21 19:29 Labs: Laboratory Results - last 24 hr 07/25/21 07/25/21 07/26/21 06:38 06:38 19:29 WBC RBC Hgb Hct MCV MCH MCHC RDW Plt Count MPV Immature Gran % (Auto) Neut % (Auto) Lymph % (Auto) [place] % (Auto) Eos % (Auto) Baso % (Auto) Lymph # (Auto) [place] # (Auto) Eos # (Auto) Baso # (Auto) Abs Immat Gran (auto) Absolute Neuts (auto) Absolute Nucleated RBC Nucleated RBC % Sodium 134 L Potassium 3.7 Chloride 108 H Carbon Dioxide 22 Anion Gap 4 L BUN 9 Creatinine 0.60 L Estim Creat Clear Calc 106 Estimated GFR > 60 Glucose 116 H Uric Acid 6.1 Calcium 8.2 L Total Bilirubin 0.2 AST 36 ALT 16 Alkaline Phosphatase 190 H Total Protein 5.0 L Albumin 2.6 L RPR Non-reactive Blood Type A Positive Antibody Screen Negative Crossmatch See Detail 07/26/21 19:30 WBC 9.9 RBC 3.79 L Hgb 9.9 L Hct 31.6 L MCV 83.4 D MCH 26.1 D MCHC 31.3 L RDW 16.8 H Plt Count 191 MPV 12.1 H Immature Gran % (Auto) 1.2 H Neut % (Auto) 70.1 Lymph % (Auto) 18.8 [place] % (Auto) 9.3 H Eos % (Auto) 0.4 Baso % (Auto) 0.2 Lymph # (Auto) 1.85 [place] # (Auto) 0.9 H Eos # (Auto) 0.0 Baso # (Auto) 0.0 Abs Immat Gran (auto) 0.12 H Absolute Neuts (auto) 6.9 H Absolute Nucleated RBC 0.0 Nucleated RBC % 0.2 Sodium Potassium Chloride Carbon Dioxide Anion Gap BUN Creatinine Estim Creat Clear Calc Estimated GFR Glucose Uric Acid Calcium Total Bilirubin AST ALT Alkaline Phosphatase Total Protein Albumin RPR Blood Type Antibody Screen Crossmatch OB - PN A/P Plan day: 2 Plan: routine care and discharge home Time Spent With Patient Time: Total time spent is greater than 50% in coordination of care (as documented) at patient's floor/unit and/or counseling patient: Exam Const: General: comfortable and no acute distress Resp: Effort & Inspection: normal respiratory effort Auscultation: no rales, no rhonchi and no wheezes Cardio: Rate: regular rate Heart sounds: no click, no murmurs and no rubs GI: GI Palp: Yes Soft to palpation and No Tenderness to palpation present (GI) Auscultation: normal bowel sounds Extrem: General: normal to inspection, no pedal edema and no calf tenderness
--- NOTE | 2021-07-27 07:41 | PM.OBDSVD ---
DS: Admitting Diagnosis Discharge Date 07/27/2021 Admitting Diagnosis term DS: Discharge Diagnosis Discharge Diagnosis (1) Term delivered: Code(s): O80 - Encounter for full-term uncomplicated delivery Status: Acute OB - DS: Summary OB Procedures : None OB Procedures Intrapartum: Spontaneous Vag Delivery OB Procedures: : None Time Spent with Patient Time attestation: Total time spent providing and/or coordinating discharge services: DS: Data Data Completed and Pending Pending studies at discharge: Pending at discharge 07/25/21 12:21 Surgical [PTH] Routine Labs on day of discharge: Labs from last 24 hours 07/26/21 07/26/21 07/25/21 19:30 19:29 06:38 WBC 9.9 RBC 3.79 L Hgb 9.9 L Hct 31.6 L MCV 83.4 D MCH 26.1 D MCHC 31.3 L RDW 16.8 H Plt Count 191 MPV 12.1 H Immature Gran % (Auto) 1.2 H Neut % (Auto) 70.1 Lymph % (Auto) 18.8 [place] % (Auto) 9.3 H Eos % (Auto) 0.4 Baso % (Auto) 0.2 Lymph # (Auto) 1.85 [place] # (Auto) 0.9 H Eos # (Auto) 0.0 Baso # (Auto) 0.0 Abs Immat Gran (auto) 0.12 H Absolute Neuts (auto) 6.9 H Absolute Nucleated RBC 0.0 Nucleated RBC % 0.2 Sodium 134 L Potassium 3.7 Chloride 108 H Carbon Dioxide 22 Anion Gap 4 L BUN 9 Creatinine 0.60 L Estim Creat Clear Calc 106 Estimated GFR > 60 Glucose 116 H Uric Acid 6.1 Calcium 8.2 L Total Bilirubin 0.2 AST 36 ALT 16 Alkaline Phosphatase 190 H Total Protein 5.0 L Albumin 2.6 L RPR Blood Type A Positive Antibody Screen Negative Crossmatch See Detail 07/25/21 06:38 WBC RBC Hgb Hct MCV MCH MCHC RDW Plt Count MPV Immature Gran % (Auto) Neut % (Auto) Lymph % (Auto) [place] % (Auto) Eos % (Auto) Baso % (Auto) Lymph # (Auto) [place] # (Auto) Eos # (Auto) Baso # (Auto) Abs Immat Gran (auto) Absolute Neuts (auto) Absolute Nucleated RBC Nucleated RBC % Sodium Potassium Chloride Carbon Dioxide Anion Gap BUN Creatinine Estim Creat Clear Calc Estimated GFR Glucose Uric Acid Calcium Total Bilirubin AST ALT Alkaline Phosphatase Total Protein Albumin RPR Non-reactive Blood Type Antibody Screen Crossmatch Discharge Plan Discharge Discharging Clinician: Anna Robertson Patient Disposition: Home, Self-Care Activity: pelvic rest Diet: regular Patient Instructions: Antibiotic Form Stand Alone Forms: General Discharge Information Follow-up/Referrals: Anna Robertson MD [Physician] - Discharge Medications: Continued Slow Release Iron 140 mg (45 mg iron) Tablet Extended Release 140 mg PO DAILY RF: 0 omeprazole 20 mg Tablet,Delayed Release (Dr/Ec) 20 mg PO DAILY RF: 0 buspirone 15 mg tablet 15 mg PO DAILY RF: 0 esomeprazole magnesium 20 mg capsule,delayed release(DR/EC) 20 mg PO DAILY RF: 0 duloxetine [Cymbalta] 30 mg Capsule,Delayed Release(Dr/Ec) 30 mg PO DAILY RF: 0 cholecalciferol (vitamin D3) [Vitamin D3] 125 mcg (5,000 unit) Tablet 125 mcg PO DAILY RF: 0 PNV cmb#95-ferrous fumarate-FA [] 28 mg iron- 800 mcg Tablet 1 tablet PO DAILY RF: 0 Date of admission: 07/25/21 05:58 Primary Care Provider: Pérez Conley Admitting Provider: Anna Robertson Attending physician on admission: Anna Roebrtson Condition: Stable
[2021-07-27] MEDS: POLYSACCHARIDE IRON COMPLEX 150 MG CAPSULE PO ×2 (09:07→17:03)
[2021-07-27] MEDS: DOCUSATE SODIUM 100 MG CAPSULE PO (09:07)
[2021-07-27] MEDS: MULTIVIT/MIN/PREN/FOL AC/IRON TABLET 1 TAB PO (09:07)
[2021-07-27] MEDS: DULoxetine HCL 30 MG CAPSULE.DR PO (09:08)
[2021-07-27] MEDS: busPIRone HCL 5 MG TABLET 15 MG PO (09:08)
--- NOTE | 2021-07-27 12:27 | PC.NURSE ---
[id number] Introductions made and consulted with patient to assess needs related to . Mother led conversation with her experience with feeding baby so far. Mother has excoriations on her nipples more on the right than the left. Mother works well with her and verbalized understanding of nipple damage related to not enough breast in his mouth . Reviewed good handwashing when working with infant, breast, nipples and how to protect the nipples with a deep latch. Encouraged understanding the benefits of skin to skin, responding to feeding cues, frequencies of feeding 8-12 times in 24 hours (approximately 2-3 hours), duration of feedings, milk production, intake/output feeding sheet and signs of adequate intake. Discussed stimulating with skin to skin, touch and talking to infant to encourage eating at the breast. Reviewed positioning and alignment, supporting breast, off-centered (asymmetrical latch) and leading with the chin with big open wide gape. Infant latched optimally to the right breast in football position. Education given to mother of how to visualize suck/swallow ratios and drinking at the breast. Infant was able to maintain latch without discomfort to mother. has had adequate feedings in the past 24 hours and meets the outcomes for weight, output and jaundice. Mother states she feels confident to continue effectively her infant at home if infant goes home with her. Reviewed production of human milk, transition of milk, signs of adequate intake and engorgement prevention/relief and when to call the infant care provider using the mom and baby guide. Reviewed medications mother is taking with information provided by [employer]/CDC, to avoid drugs, community resources and outpatient services as listed in the mom and baby guide/[facility] website. Reinforced watching for feeding cues with responsive feeding. Nipple care reviewed with optimal latching, good positioning, comfort, healing with warm, wet washcloth to rinse breast, then leave open to air-dry, colostrum may be left on nipples to dry but have clean hands when touching the nipple/breast. Resources used to facilitate learning were used from the visual handout/mom and baby guide. Mother voiced understanding responding to feeding cues, may need to stimulating approximately 2-3 hours from the start of the last feeding, calling for assistance if the infant does not latch or there discomfort . Reported to primary RN.
--- OUTSIDE RECORDS SUMMARY | 2021-07-27 13:29 | XMS_ITS | Encounter Summary ---
:1985 Author Care Team Providers Name Role Phone Pérez Conley Primary Care Provider [phone] Reason for Visit None recorded. Assessment and [...] around [facility] Office 09/03/2021 TI[facility]O Michel [facility] Lab None ? ? recorded. Referral None [...]
--- OUTSIDE RECORDS SUMMARY | 2021-07-27 13:29 | XMS_ITS | Encounter Summary ---
:1985 Author Care Team Providers Name Role Phone Pérez Conley Primary Care Provider [phone] Reason for Visit OB visit [id number] Assessment [...] ? Return to on or around [facility] Office 09/03/2021 TIAGO Michel [facility] Lab CBC W/ 06/18/2021 [facility] (Lab) ? CMP, Serum 06/18/20[place] [facility] [place] [facility] (Lab) ? Uric Acid, 06/18/2021 [facility] [place] [facility] (Lab) Referral None ? ? recorded. Procedures None ? ? recorded.
--- OUTSIDE RECORDS SUMMARY | 2021-07-27 13:29 | XMS_ITS | Encounter Summary ---
:1985 Author Care Team Providers Name Role Phone Pérez Conley Primary Care Provider [phone] Reason for Visit None recorded. Assessment and [...] around [facility] Office 09/03/2021 TIAGO Michel [facility] Lab None ? ? recorded. Referral [...]
--- OUTSIDE RECORDS SUMMARY | 2021-07-27 13:29 | XMS_ITS | Encounter Summary ---
:1985 Author Care Team Providers Name Role Phone Pérez Conley Primary Care Provider [phone] Reason for Visit None recorded. Assessment and [...] around [facility] 09/03/2021 TIAGO Michel [facility] Lab None ? ? recorded. [...]
--- OUTSIDE RECORDS SUMMARY | 2021-07-27 13:29 | XMS_ITS | Encounter Summary ---
:1985 Author Care Team Providers Name Role Phone Pérez Conley Primary Care Provider [phone] Reason for Visit OB visit OB [id number] EDC 08/15/2021 Assessment and Plan Assessment Note [...]
--- OUTSIDE RECORDS SUMMARY | 2021-07-27 13:29 | XMS_ITS ---
:1985 Author Care Team Providers Name Role Phone DAMARIS FERNANDEZ Primary Care Provider [phone] Allergies Code Code System Name Reaction Severity Status Onset NKDA ? Medications Name Status Start Date Stop Date ? ? Addyi 100 mg tablet Completed ? 06/28/2020 azithromycin 500 mg tablet Completed ? 02/02 TAKE 2 TABLETS BY MOUTH 1 TIME buspirone 10 mg tablet Active ? Not avail able TAKE 1 TABLET BY MOUTH TWICE DAILY. AVOID DRIVING OR OPERATE First Retail buspirone 15 mg tablet Completed ? TAKE [...]
--- OUTSIDE RECORDS SUMMARY | 2021-07-27 13:29 | XMS_ITS | Encounter Summary ---
:1985 Author Care Team Providers Name Role Phone Pérez Conley Primary Care Provider [phone] Reason for Visit OB visit Glucose/ OB [id number] EDC 08/15/2021 LMP u nsure Assessment and [...]
--- OUTSIDE RECORDS SUMMARY | 2021-07-27 13:29 | XMS_ITS | Encounter Summary ---
:1985 Author Care Team Providers Name Role Phone Pérez Conley Primary Care Provider [phone] Reason for Visit OB visit ob [id number] edc 08/15/2021 lmp unsure Assessment and Plan [...] ? Return to on or around [facility] Office 09/03/2021 TIAGO Michel - [...]
--- OUTSIDE RECORDS SUMMARY | 2021-07-27 13:29 | XMS_ITS | Encounter Summary ---
:1985 Author Care Team Providers Name Role Phone Pérez Conley Primary Care Provider [phone] Reason for Visit None recorded. Assessment and [...]
--- OUTSIDE RECORDS SUMMARY | 2021-07-27 13:29 | XMS_ITS | Encounter Summary ---
:1985 Author Care Team Providers Name Role Phone Pérez Conley Primary Care Provider [phone] Reason for Visit None recorded. Assessment and [...] None ? ? recorded. Imaging US, 07/17/2021 [place] [facility], Biophysical Profile Medications Name Start Date ? ? buspirone 10 mg tablet ?
--- OUTSIDE RECORDS SUMMARY | 2021-07-27 13:29 | XMS_ITS | Encounter Summary ---
:1985 Author Care Team Providers Name Role Phone Pérez Conley Primary Care Provider [phone] Reason for Visit OB visit OB [id number] EDC 08/15/2021 LMP Assessment and Plan Assessment Note Patient is _34__weeks . Dis cussed plan. 1. Routine care [...] OR OPERATE MACHINES duloxetine 60 mg capsule,delayed releas
--- OUTSIDE RECORDS SUMMARY | 2021-07-27 13:29 | XMS_ITS | Encounter Summary ---
:1985 Author Care Team Providers Name Role Phone Pérez Conley Primary Care Provider [phone] Reason for Visit None recorded. Assessment and [...] around [facility] 09/03/2021 TIAGO Michel [facility] Lab None ? ? recorded. [...]
--- OUTSIDE RECORDS SUMMARY | 2021-07-27 13:29 | XMS_ITS | Encounter Summary ---
:1985 Author Care Team Providers Name Role Phone Pérez Conley Primary Care Provider [phone] Reason for Visit None recorded. Assessment and [...] CNM ? Return to on or around [facility] Office 09/03/2021 TIAGO Michel - Lab None ? ? recorded. Referral None ? ? recorded. Procedures None ? ? recorded. Surgeries None ? ? recorded. Imaging US, 07/06/2021 [place] [facility], Follow-up Medications Name Start Date ? ? buspirone 10 mg tablet ? TAKE 1 TABLET BY MOUTH TWICE DAILY. AVOID DRIVING OR OPERATE MACHINES duloxetine 60 mg capsule,delayed release ? TAKE 1 CAPSULE BY MOUT
--- OUTSIDE RECORDS SUMMARY | 2021-07-27 13:29 | XMS_ITS | Encounter Summary ---
:1985 Author Care Team Providers Name Role Phone Pérez Conley Primary Care Provider [phone] Reason for Visit OB visit OB [id number] EDC 08/15/2021 LMP UNSURE Assessment and Plan [...] [facility]O Michel - Lab None [...]
--- OUTSIDE RECORDS SUMMARY | 2021-07-27 13:29 | XMS_ITS | Encounter Summary ---
:1985 Author Care Team Providers Name Role Phone Pérez Conley Primary Care Provider [phone] Reason for Visit OB visit Assessment and [...] [facility] Office 09/03/2021 TIAGO Michel [facility] Lab Drug 05/08/2021 [place] Screen, Urine Referral None ? ? recorded. Procedures None ? ? recorded. Surgeries None ? ? recorded. Imaging None ? ? recorded. Medications Name Start Date ? ? buspirone 10 mg tablet ? TAKE 1 TABLET BY MOUTH TWICE DAILY. AVOID DRIVING OR OPERATE MACHINES duloxetine 60 mg capsule,d
--- NOTE | 2021-07-27 14:12 | PC.NURSE ---
1250 Becca from Care Coordination called and stated that DCFS will be taking custody of the . This will happen today or tomorrow. Mom is able to be D/C'd home without infant and she already know all of this. 1255 This info was discussed with the Mother and she was tearful. The FOB acted like he did not know this info and asked why is this happening? I asked Mother if she knew why and she answered yes.
[2021-07-27] MEDS: ACETAMINOPHEN 325 MG TABLET 650 MG PO (17:01)
--- NOTE | 2021-07-27 19:13 | PC.NURSE ---
[address] [facility] Pearl Technician Hector here to get an update on [place] and . Stated that the placement in Foster care will happen tomorrow. The Foster Care was not ready in time today. [place] and spouse were informed of this by this RN. Both stated they knew nothing about this and that I was the first one to tell them about it earlier today. Informed them that if they have questions they need to call their pillowcase sewer. They V/U'd.
[2021-07-28 08:52] VITALS: BP 140/79; PULSE 79; RESP 20; TEMP 36.8
== END 2021-07-27 18:53 | disposition home or self-care (01) | DRG 807 ==
LOC: ANHOB2 07-27 12:16 → ANHLDR 07-27 13:26 → ANHOB2 07-27 13:26
PROVIDERS: Advanced Practice Midwife; Admitting Provider Obstetrics & Gynecology; PCP Emergency Medicine; Visit Provider Obstetrics & Gynecology
DX: O13.4 Gestational [pregnancy-induced] hypertension without significant proteinuria, complicating childbirth (principal); Z37.0 Single live birth; Z3A.37 37 weeks gestation of pregnancy; O36.8330 Maternal care for abnormalities of the fetal heart rate or rhythm, third trimester, not applicable or unspecified; O99.324 Drug use complicating childbirth; F15.90 Other stimulant use, unspecified, uncomplicated
CPT/HCPCS: 36415; 36430; 59025; 76819; 80053; 80307; 84550; 85014; 85018; 85025; 86592; 86850; 86900; 86901; 86920; 88307; 90715; A9270; J2590; J2795; J7050; J7120; P9016